=== PATIENT | male | born 1990 | race Caucasian/White ===

== ENCOUNTER 2021-03-19 11:16 | Inpatient (IN) | payer OTHER, MEDICAID ==
[~2021-03-19] VITALS: Ht 180.3 cm; Wt 95.7 kg
--- NOTE | ~2021-03-19 | CON ---
[address] [address] CONSULTATION Name: JUAN WAGONER Room: [address] IN .R.#: [id number] Admission: 03/19/21 Attend Phys: Lu Bateman Discharge: Date of : 89 Report #: [id number] THIS REPORT FOR: cc: FAM - No family physician/PCP FAM - No family physician/PCP Sanjay Curry MD ~ DATE OF CONSULTATION: 03/22/2021 REQUESTING PHYSICIAN: Yusef Hutchinson DO REASON FOR CONSULTATION: Acute kidney injury. HISTORY OF PRESENT ILLNESS: The patient is a 30-year-old male was admitted to the hospital on 03/19/2021 after he was found to be confused at work. Apparently, he started behaving strangely at work, told them that it was 1927 ____ year. He also was found to have abrasion on his forehead and also deep wound on the right cheek. He could not give any explanation how come he had these wounds, so he was brought to the hospital, was found that his creatinine on admission was 2.2 with unknown baseline. His creatinine yesterday was 3.1 and I was consulted. PAST MEDICAL HISTORY: Significant for seizure disorder. SOCIAL HISTORY: No use of recreational drugs. No alcohol abuse. He is apparently physically active. He runs every day. FAMILY HISTORY: Negative for renal disease. REVIEW OF SYSTEMS: Denies shortness of breath, chest pain, nausea, vomiting, diarrhea or constipation. Denies seeing any blood in the urine or stool. Denies nocturia. PHYSICAL EXAMINATION: GENERAL: He is awake, alert, oriented at the time of my examination. VITAL SIGNS: Blood pressure 123/69, heart rate 65, afebrile, maximal temperature was 37.7 yesterday. HEENT: Pupils are round. He has got a wound on his right cheek. He also has an abrasion on the forehead. NECK: Supple. LUNGS: Clear. CARDIOVASCULAR: Regular rate. ABDOMEN: Soft. EXTREMITIES: Lower extremities, no edema. SKIN: There is no skin rash [place] [address] CONSULTATION Name: JUAN WAGONER Room: [address] IN [facility]#: [id number] Admission: 03/19/21 Attend Phys: Lu Bateman Discharge: Date of : 89 Report #: [id number] ASSESSMENT: Acute kidney injury, etiology unclear. He does have some proteinuria and hematuria. He does have elevated white count. The etiology could be due to infectious ____. He was started on antibiotics and is getting IV fluids. He is not oliguric. PLAN: My plan is to continue fluids for now. Order all serologies. Order renal ultrasound and given the presence of proteinuria and hematuria, if he is not better soon, we will order renal biopsy. We may consider also giving him IV steroids while we have clearance from Infectious Disease making sure he is septic. In summary, a 30-year-old gentleman with unknown baseline renal function, admitted with some facial wound and acute kidney injury and altered mental status. He has proteinuria and microhematuria. Serologies ordered. Ultrasound ordered. Consider renal biopsy if not improved soon. A 45 minutes spent on this consultation. By: [id number] Curry MD /nt
[2021-03-19 11:20] VITALS: BP 147/99
[2021-03-19] MEDS ORDERED: REMERON15 M2 PO (11:27)
[2021-03-19] MEDS ORDERED: TRAZODONE HCL50 MG PO (11:28)
[2021-03-19] MEDS ORDERED: VALPROIC ACID250 MG PO (11:28)
[2021-03-19 11:29] LABS: HEMATOCRIT 43.1 % (42.0-52.0); HEMOGLOBIN 14.3 gm/dL (14.0-18.0); MCH 28.3 pg (26.0-34.0); MCHC 33.1 g/dL (28.0-37.0); MCV 85.3 fL (80.0-100.0); MPV 8.7 fl. (7.2-11.1); NUCLEATED RBCS 0 /100WBC; PLATELET COUNT* 243 thou/uL (150-400); RBC 5.05 mil/uL (4.50-6.00); RDW-CV 14.3 % (10.5-14.5); WBC 21.4 thou/uL (4.0-11.0)
[2021-03-19 11:38] LABS: CALCIUM 8.6 mg/dL (8.5-10.1); CREATININE 2.2 mg/dL (0.6-1.3); POTASSIUM 4.4 mmol/L (3.5-5.1)
[2021-03-19 11:42] LABS: TOTAL BILIRUBIN 0.4 mg/dL (<0.1-1.0); TOTAL PROTEIN 7.4 g/dL (6.4-8.2)
[2021-03-19 12:02] LABS: ALCOHOL < 10 mg/dL (<10); SALICYLATE < 2.8 mg/dL (2.8-20.0)
[2021-03-19 12:17] LABS: ACETAMINOPHEN < 2 ug/mL (10-30)
[2021-03-19] MEDS ORDERED: BACTRIM DS TAB1 EACH PO (13:53)
[2021-03-19 14:15] LABS: URINE BILIRUBIN NEGATIVE (Negative); URINE BLOOD 3+ (Negative); URINE CLARITY CLEAR; URINE COLOR YELLOW; URINE GLUCOSE-RANDOM NEGATIVE (Negative); URINE KETONES TRACE (Negative); URINE LEUKOCYTES-REFLEX NEGATIVE (Negative); URINE NITRITE-REFLEX NEGATIVE (Negative); URINE PROTEIN 2+ (Negative); URINE SPECIFIC GRAVITY 1.015 (1.005-1.030); URINE UROBILINOGEN 0.2 E.U./dl (0.2-1.0)
[2021-03-19 14:15] LABS: HEMOGLOBIN 12.8 gm/dL (14.0-18.0); MCH 28.3 pg (26.0-34.0); MCHC 32.7 g/dL (28.0-37.0); MCV 86.4 fL (80.0-100.0); NUCLEATED RBCS 0 /100WBC; PLATELET COUNT* 185 thou/uL (150-400); RBC 4.52 mil/uL (4.50-6.00); RDW-CV 13.9 % (10.5-14.5); WBC 17.1 thou/uL (4.0-11.0)
[2021-03-19 14:21] LABS: CALCIUM 7.8 mg/dL (8.5-10.1); CREATININE 2.3 mg/dL (0.6-1.3); POTASSIUM 4.5 mmol/L (3.5-5.1)
[2021-03-19 14:22] LABS: AMP/METHAMP Negative (Negative); BARBITURATES Negative (Negative); BENZODIAZEPINES Negative (Negative); COCAINE Negative (Negative); METHADONE Negative (Negative); OPIATES Negative (Negative); PCP Negative (Negative); THC Negative (Negative)
[2021-03-19 14:31] LABS: ABSOLUTE LYMPHOCYTES 2.1 thou/uL (0.8-5.3); ABSOLUTE MONOCYTES 1.1 thou/uL (0.0-1.2); ABSOLUTE NEUTROPHILS 18.2 thou/uL (1.6-8.1)
[2021-03-19 14:42] LABS: PLATELET ESTIMATE ADEQUATE
[2021-03-19 14:47] LABS: BACTERIA-REFLEX None Seen /HPF (None Seen); CASTS None Seen /LPF (None Seen); CRYSTALS None Seen /LPF (None Seen); SQUAMOUS NONE SEEN /LPF (0-3); URINE WBC-REFLEX 0-5 Rare /HPF (0-5)
[2021-03-19 16:25] LABS: ABSOLUTE LYMPHOCYTES 1.2 thou/uL (0.8-5.3); ABSOLUTE MONOCYTES 1.2 thou/uL (0.0-1.2); ABSOLUTE NEUTROPHILS 14.5 thou/uL (1.6-8.1); PLATELET ESTIMATE ADEQUATE
[2021-03-19 19:20] VITALS: BP 139/91
[2021-03-19 20:00] VITALS: BP 135/89
[2021-03-20 00:12] VITALS: BP 132/82
[2021-03-20 03:46] VITALS: BP 138/96
[2021-03-20 08:00] VITALS: BP 141/98
[2021-03-20 12:03] VITALS: BP 140/93
[2021-03-20 16:07] VITALS: BP 144/99
[2021-03-20 20:00] VITALS: BP 139/90
[2021-03-21] VITALS (7 sets, daily range): BP systolic 126–149; BP diastolic 72–99
[2021-03-21 06:23] LABS: CALCIUM 7.8 mg/dL (8.5-10.1); CREATININE 3.1 mg/dL (0.6-1.3); POTASSIUM 3.6 mmol/L (3.5-5.1)
[2021-03-21 06:26] LABS: MAGNESIUM 2.7 mg/dL (1.8-2.4); PHOSPHORUS* 3.7 mg/dL (2.5-4.9)
[2021-03-22 03:56] VITALS: BP 145/94
[2021-03-22 07:25] VITALS: BP 123/69
[2021-03-22 11:56] VITALS: BP 150/91
[2021-03-22 19:28] LABS: HEMOGLOBIN 12.4 gm/dL (14.0-18.0); MCH 28.5 pg (26.0-34.0); MCHC 33.6 g/dL (28.0-37.0); MPV 10.1 fl. (7.2-11.1); RBC 4.35 mil/uL (4.50-6.00)
[2021-03-22 19:47] LABS: ALBUMIN 2.9 g/dL (3.4-5.0); CALCIUM 8.1 mg/dL (8.5-10.1); CREATININE 2.2 mg/dL (0.6-1.3); POTASSIUM 3.8 mmol/L (3.5-5.1); TOTAL BILIRUBIN 0.4 mg/dL (<0.1-1.0); TOTAL PROTEIN 5.9 g/dL (6.4-8.2)
[2021-03-23 04:19] LABS: APTT 27.2 Seconds (25.0-31.3); INR 1.1; PROTIME 11.4 Seconds (9.20-11.50)
[2021-03-23 04:29] LABS: ALBUMIN 2.6 g/dL (3.4-5.0); CALCIUM 7.7 mg/dL (8.5-10.1); CREATININE 1.9 mg/dL (0.6-1.3); POTASSIUM 3.5 mmol/L (3.5-5.1); TOTAL BILIRUBIN 0.6 mg/dL (<0.1-1.0); TOTAL PROTEIN 5.1 g/dL (6.4-8.2)
[2021-03-23 07:40] VITALS: BP 117/81
[2021-03-23 08:57] VITALS: BP 150/91
[2021-03-23 11:25] LABS: CSF GLUCOSE 51 mg/dl (40-70); CSF PROTEIN 48.3 mg/dl (15-45)
[2021-03-23 11:30] VITALS: BP 159/57
[2021-03-23 11:34] LABS: CSF CLARITY CLEAR; CSF COLOR COLORLESS; VOLUME 11 ml
[2021-03-23 12:23] LABS: CSF RBC 1 /mm3; CSF WBC 0 /mm3 (0-10)
--- NOTE | 2021-03-23 12:51 | 2DMMODE ---
[place] [address] 2 D/M-MODE ECHOCARDIOGRAM Name: CIARANJUAN Mitchel Room: [address] IN Tres.#: [id number] Admission: 03/19/21 Attend Phys: Yusef Hutchinson Discharge: Date of : 89 Date of Service: 03/23/21 1251 Report #: [id number] THIS REPORT FOR: cc: FAM - No family physician/PCP FAM - No family physician/PCP Carlos Goss MD [facility] ~ APPROVED REPORT Study performed: 03/23/2021 09:13:07 EXAM: Comprehensive 2D, Doppler, and color-flow Echocardiogram Patient Location: In-Patient Room #: [facility] Status: routine BSA: 2.16 HR: 48 bpm BP: 150/91 mmHg Rhythm: NSR Other Information Study Quality: Excellent Indications CVA/TIA Echo Enhancing Agent Indication: Rule out Shunt Agent(s) / Amount(s) Used: Agitated Saline 10 cc 2D Dimensions IVSd: 9.98 (7-11mm) LVOT Diam: 23.77 (18-24mm) LVDd: 54.13 mm PWd: 10.40 (7-11mm) Ascending Ao: 32.43 (22-36mm) LVDs: 34.52 (25-40mm) Aortic Root: 33.83 mm Volumes Left Atrial Volume (Systole) LA ESV Index: 30.80 mL/m2 Aortic Valve AoV Peak Joseph.: 1.48 m/s AO Peak Gr.: 8.75 mmHg LVOT Max P.14 mmHg AO Mean Gr.: 4.30 mmHg LVOT Mean P[place]70 [place] [address] 2 D/M-MODE ECHOCARDIOGRAM Name: CIARANJUAN E Room: [address] IN .R.#: [id number] Admission: 03/19/21 Attend Phys: Yusef Hutchinson Discharge: Date of : 89 Date of Service: 03/23/21 1251 Report #: [id number] LVOT Max V: 1.24 m/s AO V2 VTI: 27.04 cm LVOT Mean V: 0.74 m/s LOPEZ (VTI): 3.99 cm2 LVOT V1 VTI: 24.33 cm Mitral Valve E/A Ratio: 2.19 MV Decel. Time: 238.27 ms MV E Max Joseph.: 0.92 m/s MV PHT: 69.10 ms MVA (PHT): 3.18 cm2 TDI E/Lateral E': 4.18 E/Medial E': 5.41 Medial E' Joseph.: 0.17 m/s Lateral E' Joseph.: 0.22 m/s Pulmonary Valve PV Peak Joseph.: 1.05 m/s PV Peak Gr.: 4.45 mmHg Tricuspid Valve RAP Estimate: 5.00 mmHg TR Peak Gr.: 22.49 mmHg RVSP: 27.00 mmHg PA Pressure: 27.00 mmHg Left Ventricle The left ventricle is normal size. There is normal LV segmental wall motion. There is normal left ventricular wall thickness. Left ventricular systolic function is normal. The left ventricular ejection fraction is within the normal range. LVEF is 55-60%. The left ventricular diastolic function is normal. Right Ventricle The right ventricle is normal size. The right ventricular systolic function is normal. Atria The left atrium size is normal. The interatrial septum is intact with no evidence for an atrial septal defect. The right atrium size is normal. Aortic Valve The aortic valve is normal in structure. No aortic regurgitation is present. There is no aortic valvular stenosis. Mitral Valve The mitral valve is normal in structure. [place] [address] 2 D/M-MODE ECHOCARDIOGRAM Name: JUAN WAGONER Room: [address] IN ..#: [id number] Admission: 03/19/21 Attend Phys: Yusef Hutchinson Discharge: Date of : 89 Date of Service: 03/23/21 1251 Report #: [id number] No evidence of mitral valve stenosis. Tricuspid Valve The tricuspid valve is normal in structure. Trace tricuspid regurgitation. No pulmonary hypertension. Pulmonic Valve The pulmonary valve is normal in structure. There is no pulmonic valvular regurgitation. Great Vessels The aortic root is normal in size. IVC is normal in size and collapses >50% with inspiration. Pericardium There is no pericardial effusion. <Conclusion> LVEF is 55-60%. The interatrial septum is intact with no evidence for an atrial septal defect. <ELECTRONICALLY SIGNED> By: Carlos Goss MD, FACC 03/23/21 1251 1251 1251 Carlos oGss MD, FACC /INF
--- NOTE | 2021-03-23 13:41 | EEG ---
[address] [address] EEG STUDY REPORT Name: JUAN WAGONER Room: [address] IN M.R.#: [id number] Admission: 03/19/21 Attend Phys: Lu Bateman Discharge: Date of : 89 Report #: [id number] THIS REPORT FOR: cc: FAM - No family physician/PCP FAM - No family physician/PCP Tate Smith MD ~ DATE OF SERVICE: 03/20/2021 This patient's EEG was done because the patient has a history of seizure. EEG was done by placing the electrode by standard 10-20 system of electrode placement. Both referential and sequential montages were used for recording. Background activity in this patient's EEG is up to 9 Hz and 20 microvolt. The patient repeatedly went to sleep that is associated with bilateral slowing and vertex sharp waves. Photic stimulation is unremarkable. Throughout the record, no active epileptiform activity was noticed. IMPRESSION: This patient's EEG does not demonstrate any active epileptiform activity. The patient has a pretty significant slowing because of repeated sleeping, but no active epileptiform activity was noticed. Thank you very much for this referral. <ELECTRONICALLY SIGNED> By: Tate Smith MD 03/23/21 1341 1153 [id number] Smith MD /nt
--- NOTE | 2021-03-23 13:41 | CON ---
[address] [address] CONSULTATION Name: JUAN WAGONER Room: [address] IN M.R.#: [id number] Admission: 03/19/21 Attend Phys: Lu Bateman Discharge: Date of : 89 Report #: [id number] THIS REPORT FOR: cc: VIRI - No family physician/PCP FAM - No family physician/PCP Tate Smith MD ~ DATE OF CONSULTATION: 03/21/2021 HISTORY OF PRESENT ILLNESS: This is a 30-year-old male patient for whom a routine consultation was requested for altered mental status. I saw the patient tonight and since then, I have tried to gather the information on him, but unfortunately there are multiple problems. This patient provides some history, but the history is neither reliable nor clear. I looked into his chart to see if I can reach somebody. No contact has been listed except for the patient in the chart. Finally, I figured it out that this patient apparently is estranged from the patient's parents and there is nobody to talk to. I will try to see if some exception can be made where I can talk to the parents and if they will be willing to talk to the parents, but I need to talk to the talent manager whether that is allowed in these kind of circumstances or not when the patient does not give me permission to talk to the parents. I reviewed his record and then I talked to the nurse. I had earlier written to hold his Lovenox for tonight and tomorrow so that we can do an LP if necessary in the morning. Unfortunately, Lovenox was given and I talked to the nurses and now I have asked them to hold Lovenox for tomorrow and day after. The record indicates that he went to the work. He works at [employer]. He was found to be altered and he was brought to Emergency Room. I reviewed the Emergency Room physician's note and it looks like that is what is there. This patient is also on psychiatric medication. He does not give me any history what kind of psychiatric disorder he has. He says he has seizure disorder for a long time, but he does not tell me what kind of seizure disorder he has. One of the notes indicate that he is on Bactrim. I do not know why he is on Bactrim and how long he has been on that. His creatinine is up and in fact has increased since admission and I do not know what the reason for that is. I reviewed his chest x-ray, which demonstrates finding consistent with COVID pneumonia. It is moderate amount. REVIEW OF SYSTEMS: Review of systems from him is very limited. He gives a history that he has seizures, but he does not know what kind of seizure he has. He is on psychiatric medication. He does not tell me why he is on psychiatric medication. He is on valproic acid. I am not sure whether that is because of any psychiatric issue or whether seizures as has been told to other physician. He is on a combination of ceftriaxone as well as vancomycin. That is all the review of system I can get in this patient after talking to him. He says he [address] [address] CONSULTATION Name: JUAN WAGONER Room: [address] IN M.R.#: [id number] Admission: 03/19/21 Attend Phys: Lu Bateman Discharge: Date of : 89 Report #: [id number] feels better and he feels back to his baseline. I do not know how to confirm that since I cannot talk to anybody at least for the time being. FAMILY HISTORY: He denies any seizure, but I cannot tell. SOCIAL HISTORY: He says he does not smoke or drink any alcohol. His alcohol level is less than 10 and his drug screen is negative. He does have valproic in his system, but that is only 7. PHYSICAL EXAMINATION: His examinations indicate he is alert. He is responsive. He had a very unusual affect. I do not see much meningeal sign on him. He moved all 4 extremities. His cranial nerve examination appear unremarkable. I could not look at the patient's fundus. He does not appear to be in respiratory difficulty. He says his sensation is about the same on both sides. His reflexes are somewhat diminished, but that may be partly because he does not cooperate and does not relax enough. He appeared to be reasonably well built and reasonably nourished individual. His vital signs indicate that he still has a temperature of 100.2. He had some temperature when he came in, but that it became better. It was never more than 101. DIAGNOSTIC DATA: He did have a CT scan of the head, which was unremarkable. He has facial wounds, so, they did a CT C-spine also, which does not show any acute abnormality. Apparently, he had an EEG. I talked to the biomedical equipment technician earlier. I cannot get to that EEG. I went to [facility] and tried to open his EEG file and I cannot open the EEG file. The biomedical repair technician is going to look in the morning to see what can be done so that I can review the EEG. Apparently, some new system was put in and because of technical problems, I cannot access that. IMPRESSION: All I can tell from the history is that he has altered mental status and he has a history of seizures and psychiatric disorder. There is nobody I can contact han to reach to get some more history. His doctor apparently is in [place]. Further things have broken down because I cannot access his EEG because of technical problems. It looks like they gave him Lovenox and did not hold Lovenox probably because they did not see the order. I am concerned with this patient because we need some more input to see what this patient's condition is. I will try to continue to see if I can reach somebody who can give better history in this patient. Main thing we need to decide is that how much symptoms are related to his COVID pneumonia or a seizure he may have had, which may have been triggered by his systemic infection and/or whether he has something else including encephalitis. Meningitis is also possible, but he is [place] [address] CONSULTATION Name: JUAN WAGONER Room: [address] IN .R.#: [id number] Admission: 03/19/21 Attend Phys: Lu Bateman Discharge: Date of : 89 Report #: [id number] I am going to order an MRI of the brain without contrast. His creatinine is high, so I do not want to give him contrast, although that would have been the ideal. That MRI has to be done because of COVID protocol and I am not sure when it will be done and I will try to contact the MRI team in the morning. We will try to continue to look at the EEG. I thought about giving a dose of acyclovir to this patient tonight, but the problem is that this patient's creatinine is already increasing. He has COVID and he has COVID pneumonia as per record, but whatever I can tell from looking at the lab, his COVID test looks negative, so that is also confusing. His CPK is high. I am not sure why it is high and he has been here since and whatever I can tell from the records he has not deteriorated much. In fact, the records indicate he is alert and oriented from the nurses' note of 03/20. Therefore, I did not give him acyclovir, especially because of his kidney problem. Some of the record also indicates he has a history of substance abuse. Considering that, I decided not to give acyclovir tonight and we will consult an ID and ID comes only during the daytime here and we will talk to them and see what their impression is. We may not be able to do LP tomorrow even if that is necessary because of Lovenox. I will try to figure out things in the morning on the pattern summarized above, but it is a very difficult situation in this patient, but apparently the patient is becoming better and he tells me that he feels at least back to his baseline. I will talk to the hospitalist in the morning and talk to multiple health personnel and see what we can figure out in this patient in the morning. Thank you very much for this referral. <ELECTRONICALLY SIGNED> By: Tate Smith MD 03/23/21 1341 [id number] [id number] Smith MD /nt
[2021-03-23 14:58] LABS: URINE BILIRUBIN NEGATIVE (Negative); URINE BLOOD NEGATIVE (Negative); URINE CLARITY CLEAR; URINE COLOR YELLOW; URINE GLUCOSE-RANDOM NEGATIVE (Negative); URINE KETONES 1+ (Negative); URINE LEUKOCYTES NEGATIVE (Negative); URINE NITRITE NEGATIVE (Negative); URINE PROTEIN NEGATIVE (Negative); URINE SPECIFIC GRAVITY 1.015 (1.005-1.030); URINE UROBILINOGEN 0.2 E.U./dl (0.2-1.0)
[2021-03-23 16:00] VITALS: BP 168/98
[2021-03-23 20:00] VITALS: BP 171/93
[2021-03-24] VITALS: BP 161/82
[2021-03-24 04:00] VITALS: BP 163/69
[2021-03-24] MEDS ORDERED: CEFPODOXIME PR200 M1 PO (06:12)
[2021-03-24 10:08] LABS: ANTI-DNA SCREEN <1 IU/mL (0-9); ANTI-RNP <0.2 AI (0.0-0.9); ANTI-SSA <0.2 AI (0.0-0.9); ANTIJO-I AB <0.2 AI (0.0-0.9); GLOMERULR BASEM MEMBRN AB 3 units (0-20)
[2021-03-24 19:07] LABS: ANA INTERPRETATION Negative (())
[2021-03-28 15:08] LABS: CSF IGG INDEX 0.7 (0.0-0.7); CSF IgG 2.6 mg/dL (0.0-10.3)
== END 2021-03-24 05:10 | disposition home or self-care (01) | DRG 177 ==
LOC: M.ERS 11:16 → M.ORTHSURG 14:38 → M.TBA-ER 14:38 → M.ORTHSURG 19:10 → M.2W 03-22 18:38
PROVIDERS: Family Medicine; Internal Medicine; Internal Medicine Nephrology; Psychiatry & Neurology Neuromuscular Medicine; ADMIT Internal Medicine; ATTEND Internal Medicine
PROC: B01B1ZZ Fluoroscopy of Spinal Cord using Low Osmolar Contrast (ICD-10-PCS; principal; 2021-03-23)
PROC: 009U3ZX Drainage of Spinal Canal, Percutaneous Approach, Diagnostic (ICD-10-PCS; principal; 2021-03-23)
DX: J15.6 Pneumonia due to other Gram-negative bacteria (principal); G93.41 Metabolic encephalopathy; N17.9 Acute kidney failure, unspecified; L03.211 Cellulitis of face; M62.82 Rhabdomyolysis; Z20.822 Contact with and (suspected) exposure to COVID-19; R31.29 Other microscopic hematuria; G40.909 Epilepsy, unspecified, not intractable, without status epilepticus; S00.83XA Contusion of other part of head, initial encounter; W18.39XA Other fall on same level, initial encounter; Y93.89 Activity, other specified; Y92.89 Other specified places as the place of occurrence of the external cause; Y99.8 Other external cause status